=== PATIENT | female | born 2000 | race Two or more races ===

== ENCOUNTER 2025-07-10 23:01 | Emergency (ER) | payer OTHER ==
[~2025-07-10] VITALS: Ht 172.7 cm; Wt 98.3 kg
[2025-07-10 23:14] VITALS: BP 116/77; PULSE 87; RESP 16; TEMP 97.8; O2SAT 98
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
== END 2025-07-11 02:29 | disposition home or self-care (01) ==
LOC: ER 23:01
DX: S80.12XA Contusion of left lower leg, initial encounter (principal); S90.02XA Contusion of left ankle, initial encounter; S80.02XA Contusion of left knee, initial encounter; S50.02XA Contusion of left elbow, initial encounter; V89.2XXA Person injured in unspecified motor-vehicle accident, traffic, initial encounter; Y93.89 Activity, other specified; Y92.488 Other paved roadways as the place of occurrence of the external cause; Y99.2 Volunteer activity
CPT/HCPCS: 73080; 73562; 73610